=== PATIENT | male | born 1960 | race American Indian/Alaskan Native ===

== ENCOUNTER 2019-11-24 05:18 | Inpatient (IN) | payer OTHER ==
--- NOTE | 2019-11-24 05:23 | Event Note ---
Date: 11/24/19 Medical screening examination note: Patient is a 59-year-old gentleman, brought to the hospital by emergency medical services, patient appears to have a history of obesity, and diabetes, brought to the hospital with a complaint of painless shortness of breath. Of note, patient was evaluated at this hospital August of this year for similar symptoms, had a CT scan of the chest negative for acute pathology. EMS reports the patient was hypoxic in the field. Patient denies fever, and exposure to COVID. Patient fairly obese, suspect obstructive sleep apnea, pulmonary hypertension, and obesity hypoventilation syndrome. Place patient on BiPAP, obtain EKG, basic laboratory studies, x-ray of the chest, reassess.
--- NOTE | 2019-11-24 05:59 | XRay Report ---
CHEST 1 VIEW INDICATION: Dyspnea. COMPARISON: 09/01/2019 FINDINGS: Support devices: None. Heart: Stable. Lungs/Pleura: There are mild diffuse pulmonary opacities that are predominantly perihilar. No signifi cant effusion. IMPRESSION: 1. Mild diffuse predominantly perihilar bilateral pulmonary opacities. This could be seen in the sett ing of pulmonary edema. Signer Name: Robert Garnica MD Signed: 11/24/2019 5:55 AM Workstation Name: [id number]
[2019-11-24 06:04] LABS: ABG Base Excess -1.9 mmol/L (-2.0-3.0); ABG HCO3 23.9 mmol/L (20.0-26.0); ABG Methemoglobin 0.5 % (0.0-1.5); ABG Oxygen Saturation 97.4 % (95.0-99.0); ABG PCO2 44.6 mm Hg; ABG PH 7.348 pH Units (7.350-7.450); ABG PO2 99.5 mm Hg (80.0-90.0)
[2019-11-24 06:10] LABS: Basophils # (Auto) 0.1 K/mm3 (0.0-0.1); Basophils % (Auto) 0.7 % (0.0-1.8); Eosinophils # (Auto) 0.3 K/mm3 (0.0-0.4); Eosinophils % (Auto) 2.4 % (0.0-4.3); Hematocrit 41.9 % (35.5-45.6); Hemoglobin 14.2 gm/dl (11.8-15.2); Lymphocytes # (Auto) 3.7 K/mm3 (1.2-5.4); Lymphocytes % (Auto) 35.5 % (13.4-35.0); Mean Corpuscular HGB Conc 34 % (32-34); Mean Corpuscular Volume 90 fl (84-94); Monocytes # (Auto) 0.7 K/mm3 (0.0-0.8); Monocytes % (Auto) 6.6 % (0.0-7.3); Platelet Count 271 K/mm3 (140-440); Red Blood Count 4.67 M/mm3 (3.65-5.03)
[2019-11-24 06:12] LABS: INR 1.02 (0.87-1.13)
[2019-11-24 06:25] LABS: Alanine Aminotransferase 33 units/L (7-56); BUN/Creatinine Ratio 16; Blood Urea Nitrogen 14 mg/dL (9-20); Calcium 8.8 mg/dL (8.4-10.2); Hemolysis Index 5
--- NOTE | 2019-11-24 07:00 | Emergency Department Report ---
ED Shortness of Breath HPI - General Chief Complaint: Dyspnea/Respdistress Stated Complaint: DIFF BREATHING Time Seen by Provider: 11/24/19 06:17 Source: EMS Mode of arrival: Stretcher Limitations: No Limitations - History of Present Illness Initial Comments: 59-year-old male presents to ED with difficulty breathing. Patient states he was awakened from sleep with shortness of breath. EMS was called. They report patient had initial room air sats of 73%. Patient was placed on BiPAP upon ED arrival by previous MD, prior to my arrival. Patient is currently comfortable on BiPAP. He reports he had a similar occurrence of difficulty breathing appro ximately 6 months ago for which he came to the ED for evaluation. Patient states it is unclear what his diagnosis was. He has not been on any medications and has not followed up. Patient denies any fever, cough, chest pain, non- exposure to anyone who was tested positive for COVID-19. MD Complaint: shortness of breath -: This morning Severity: severe Consistency: constant Improves With: nothing Worsens With: nothing Treatments Prior to Arrival: oxygen - Related Data Home Oxygen Therapy: No Home Medications Medication Instructions Recorded Confirmed Last Taken Gabapentin 100 mg PO TID 11/24/19 11/24/19 11/23/19 amLODIPine 5 mg PO ONCE 11/24/19 11/24/19 11/23/19 Allergies Allergy/AdvReac Type Severity Reaction Status Date / Time No Known Allergies Allergy Unverified 09/01/19 08:29 ED Review of Systems ROS: Stated complaint: DIFF BREATHING Other details as noted in HPI Comment: All other systems reviewed and negative Constitutional: denies: chills, fever Respiratory: shortness of breath. denies: cough Cardiovascular: denies: chest pain Musculoskeletal: other (Denies any lower extremity swelling or pain) ED Past Medical Hx - Past Medical History Previous Medical History?: Yes Hx Diabetes: Yes - Social History Smoking Status: Current Every Day Smoker Substance Use Type: Alcohol - Medications Home Medications: Home Medications Medication Instructions Recorded Confirmed Last Taken Type Gabapentin 100 mg PO TID 11/24/19 11/24/19 11/23/19 History amLODIPine 5 mg PO ONCE 11/24/19 11/24/19 11/23/19 History ED Physical Exam - General Limitations: No Limitations General appearance: alert, in no apparent distress - Head Head exam: Present: atraumatic, normocephalic - Eye Eye exam: Present: normal appearance, EOMI - ENT ENT exam: Present: mucous membranes moist - Neck Neck exam: Present: normal inspection - Respiratory Respiratory exam: Present: rales, other (Currently on BiPAP). Absent: respiratory distress - Cardiovascular Cardiovascular Exam: Present: regular rate, normal rhythm - GI/Abdominal GI/Abdominal exam: Present: soft. Absent: distended, tenderness - Extremities Exam Extremities exam: Present: normal inspection. Absent: pedal edema, calf tenderness - Neurological Exam Neurological exam: Present: alert, oriented X3 - Psychiatric Psychiatric exam: Present: normal affect, normal mood - Skin Skin exam: Present: warm, dry, intact, normal color ED Course Vital Signs 11/24/19 11/24/19 11/24/19 05:20 05:24 05:30 Temperature 97.6 F Pulse Rate 129 H 120 H Pulse Rate [ Apical] Pulse Rate [ Left Radial] Pulse Rate [ Right Radial] Respiratory 28 H 28 H 26 H Rate Blood Pressure 165/102 Blood Pressure 165/102 [Left] O2 Sat by Pulse 100 100 99 Oximetry 11/24/19 11/24/19 11/24/19 05:32 05:53 06:00 Temperature Pulse Rate 115 H 113 H 107 H Pulse Rate [ Apical] Pulse Rate [ Left Radial] Pulse Rate [ Right Radial] Respiratory 24 20 19 Rate Blood Pressure 131/82 Blood Pressure 137/93 131/82 [Left] O2 Sat by Pulse 100 100 100 Oximetry 11/24/19 11/24/19 11/24/19 06:14 06:15 06:45 Temperature Pulse Rate 118 H 107 H 107 H Pulse Rate [ Apical] Pulse Rate [ Left Radial] Pulse Rate [ Right Radial] Respiratory 31 H 17 15 Rate Blood Pressure 130/84 124/86 Blood Pressure [Left] O2 Sat by Pulse 99 98 97 Oximetry 11/24/19 11/24/19 11/24/19 06:47 07:15 07:45 Temperature Pulse Rate 107 H 102 H 109 H Pulse Rate [ Apical] Pulse Rate [ Left Radial] Pulse Rate [ Right Radial] Respiratory 14 15 17 Rate Blood Pressure 120/86 111/81 Blood Pressure 123/92 [Left] O2 Sat by Pulse 97 99 96 Oximetry 11/24/19 11/24/19 11/24/19 08:15 08:47 09:01 Temperature Pulse Rate 102 H Pulse Rate [ Apical] Pulse Rate [ Left Radial] Pulse Rate [ Right Radial] Respiratory 21 Rate Blood Pressure 128/90 128/90 128/90 Blood Pressure [Left] O2 Sat by Pulse 100 95 96 Oximetry 11/24/19 11/24/19 09:22 09:30 Temperature 98.2 F Pulse Rate 105 H Pulse Rate [ 86 Apical] Pulse Rate [ 86 Left Radial] Pulse Rate [ 86 Right Radial] Respiratory 18 25 H Rate Blood Pressure 133/86 Blood Pressure [Left] O2 Sat by Pulse 96 98 Oximetry ED Medical Decision Making - Lab Data Result diagrams: 11/24/19 05:34 11/24/19 05:34 - EKG Data -: EKG Interpreted by Me EKG shows normal: sinus rhythm, axis, intervals, QRS complexes Rate: tachycardia (rate 107) - EKG Data Interpretation: nonspecific ST-T wave marisol, other (lateral T wave inversions; PVCs present) - Radiology Data Radiology results: report reviewed, image reviewed - Medical Decision Making 59-year-old male with likely new onset CHF, requiring BiPAP. Chest x-ray shows pulmonary edema. EKG ST changes. Troponin is normal. IV Lasix given here in ED. Patient will be admitted by hospitalist for further management. - Differential Diagnosis Pulmonary edema, pneumonia, hypertensive emergency Critical Care Time: Yes Critical care time in (mins) excluding proc time.: 35 Critical care attestation.: If time is entered above; I have spent that time in minutes in the direct care of this critically ill patient, excluding procedure time. Critical Care Time: 35 min ED Disposition Clinical Impression: New onset of congestive heart failure, Acute respiratory failure with hypoxia Disposition: OP ADMIT IP TO THIS HOSP Is pt being admited?: Yes Condition: Stable Time of Disposition: 07:27
[2019-11-24] MEDS ORDERED: FUROSEMIDE 40 MG/4 ML INJ IV ONE (07:26)
[2019-11-24] MEDS: ACETAMINOPHEN 325 MG TAB PO PRN ×2 (09:30→17:39)
[2019-11-24] MEDS ORDERED: ONDANSETRON 4 MG/2 ML INJ IV PRN (10:00)
[2019-11-24] MEDS ORDERED: DEXTROSE 50% IN WATER (25GM) 50 ML SYRINGE IV PRN (10:00)
--- NOTE | 2019-11-24 10:02 | History and Physical Report ---
History of Present Illness Date of examination: 11/24/19 Date of admission: 11/24/19 07:29 Chief complaint: Difficulty in breathing History of present illness: This is a 59-year-old male with IDDM, HTN, arthritis and a current smoker (1/2 PPD x20 years, quit 4 months ago however restarted last week) presents to the emergency department on 11/23 with shortness of breath upon waking from sleep. Upon arrival of EMS personnel SPO2 was 73% on room air. Patient was placed on BiPAP upon arrival to the emergency department. Patient reports a similar occurrence of difficulty breathing approximately 6 months ago. He also complains of a constant epigastric pain for the past 5 to 6 months this described as a sore. He endorses orthopnea and uses 4-5 pillows night and dyspnea while climbing stairs for the past 1-1/2 weeks. Patient denies any chest pain, cough, nausea or vomiting or diarrhea, hemoptysis, fatigue, fevers, chills or recent weight loss. Patient denies any sick contacts recent exposure to COVID-19. Work-up in the emergency department revealed proBNP 428, elevated glucose 234 and a chest x-ray revealed mild pulmonary edema. In the emergency department he received IV Lasix and was placed on BiPAP upon arrival. He has been now weaned to nasal cannula. Cardiology was consulted. Patient will be admitted to the hospitalist group with acute respiratory failure and acute exacerbation of heart failure. Advanced care planning has been conducted in the emergency department. Past History Past Medical History: diabetes, hypertension Past Surgical History: No surgical history Social history: , lives with family, smoking. denies: alcohol abuse, prescription drug abuse, IV drug use Family history: diabetes Medications and Allergies Allergies Allergy/AdvReac Type Severity Reaction Status Date / Time No Known Allergies Allergy Unverified 09/01/19 08:29 Home Medications Medication Instructions Recorded Confirmed Last Taken Type No Known Home Medications [No 09/01/19 09/01/19 Unknown History Reported Home Medications] Active Meds: Active Medications Acetaminophen (Tylenol) 650 mg PO Q4H PRN PRN Reason: Pain MILD(1-3)/Fever >100.5/SON Dextrose (D50w (25gm) Syringe) 50 ml IV Q30MIN PRN; Protocol PRN Reason: Hypoglycemia Docusate Sodium (Colace) 100 mg PO BID APOLLO Famotidine (Pepcid) 20 mg PO QDAY [facility] Insulin Human Lispro (Humalog) 0 unit SUB-Q ACHS [facility]; Protocol Ondansetron HCl (Zofran) 4 mg IV Q6H PRN PRN Reason: Nausea And Vomiting Oxycodone/Acetaminophen (Percocet 5/325) 1 tab PO Q6H PRN PRN Reason: Pain, Moderate (4-6) Senna (Senokot) 8.6 mg PO Q12HR [facility] Sodium Chloride (Sodium Chloride Flush Syringe 10 Ml) 10 ml IV BID APOLLO Sodium Chloride (Sodium Chloride Flush Syringe 10 Ml) 10 ml IV PRN PRN PRN Reason: LINE FLUSH Review of Systems Constitutional: no weight loss, no weight gain, no fever, no chills, no sweats, no night sweats, no fatigue, no weakness Ears, nose, mouth and throat: no ear pain, no ear discharge, no tinnitis, no decreased hearing, no nose pain, no nasal congestion, no nasal discharge, no sinus pressure, no sinus pain, no epistaxis, no bleeding gums, no dental pain, no mouth pain, no dysphagia, no hoarseness, no sore throat Cardiovascular: orthopnea, shortness of breath, dyspnea on exertion, paroxysmal nocturnal dyspnea, high blood pressure, no chest pain, no palpitations, no edema, no syncope, no lightheadedness, no leg edema Respiratory: shortness of breath, dyspnea on exertion, no cough, no cough with sputum, no excessive sputum, no hemoptysis, no congestion, no wheezing, no pleurisy, no sleep apnea Gastrointestinal: no abdominal pain, no nausea, no vomiting, no diarrhea, no con stipation, no hematemesis, no BRBPR, no melena, no hematochezia, no early satiety, no jaundice Genitourinary Male: nocturia, no dysuria, no hematuria, no flank pain, no discha rge, no urinary frequency, no urinary hesitancy, no incontinence, no erectile dysfunction, no genital pain, no genital sores Rectal: no pain, no incontinence, no bleeding Musculoskeletal: no neck stiffness, no neck pain, no shooting arm pain, no arm numbness/tingling, no low back pain, no shooting leg pain, no leg numbness/tingling, no redness of joints, no morning stiffness, no muscle weakness, no limitation of motion Integumentary: no rash, no pruritis, no redness, no sores, no wounds, no jaundice, no growths, no darkening of skin, no depigmentation Neurological: no head injury, no transient paralysis, no paralysis, no weakness, no parathesias, no numbness, no tingling, no seizures, no syncope, no vertigo, no headaches, no migraines, no tic, no convulsions, no aphasia, no change in speech Psychiatric: no anxiety, no memory loss, no change in sleep habits, no sleep disturbances, no insomnia, no suicidal ideation, no disorientation Endocrine: no cold intolerance, no heat intolerance, no polyphagia, no excessive thirst, no polydipsia, no excessive sweating, no flushing, no weight change, no proptosis, no palpatations, no high blood sugars Hematologic/Lymphatic: no easy bruising, no easy bleeding Allergic/Immunologic: no urticaria Exam - Constitutional Vitals: Temp Pulse Resp BP Pulse Ox 97.6 F 102 H 21 128/90 100 11/24/19 05:24 11/24/19 08:15 11/24/19 08:15 11/24/19 08:15 11/24/19 08:15 General appearance: Present: no acute distress - EENT Eyes: Present: PERRL, EOM intact ENT: hearing intact, poor dentition - Neck Neck: Present: supple - Respiratory Respiratory effort: normal Respiratory: bilateral: diminished - Cardiovascular Rhythm: regular Heart Sounds: Present: S1 & S2. Absent: systolic murmur, diastolic murmur - Extremities Extremities: no ischemia, pulses intact, pulses symmetrical, normal temperature, normal color, Full ROM Extremity abnormal: edema (1-2+ pitting) Peripheral Pulses: within normal limits - Abdominal General gastrointestinal: Present: soft, non-tender, non-distended, normal bowel sounds - Integumentary Integumentary: Present: clear, warm, dry - Musculoskeletal Musculoskeletal: strength equal bilaterally - Psychiatric Psychiatric: cooperative HEART Score - HEART Score Troponin: Troponin T < 0.010 ng/mL (0.00-0.029) 11/24/19 05:34 Results - Labs CBC & Chem 7: 11/24/19 05:34 11/24/19 05:34 Labs: Laboratory Last Values WBC 10.4 K/mm3 (4.5-11.0) 11/24/19 05:34 RBC 4.67 M/mm3 (3.65-5.03) 11/24/19 05:34 Hgb 14.2 gm/dl (11.8-15.2) 11/24/19 05:34 Hct 41.9 % (35.5-45.6) 11/24/19 05:34 MCV 90 fl (84-94) 11/24/19 05:34 MCH 31 pg (28-32) 11/24/19 05:34 MCHC 34 % (32-34) 11/24/19 05:34 RDW 14.0 % (13.2-15.2) 11/24/19 05:34 Plt Count 271 K/mm3 (140-440) 11/24/19 05:34 Lymph % (Auto) 35.5 % (13.4-35.0) H 11/24/19 05:34 [place] % (Auto) 6.6 % (0.0-7.3) 11/24/19 05:34 Eos % (Auto) 2.4 % (0.0-4.3) 11/24/19 05:34 Baso % (Auto) 0.7 % (0.0-1.8) 11/24/19 05:34 Lymph # (Auto) 3.7 K/mm3 (1.2-5.4) 11/24/19 05:34 Haskell # (Auto) 0.7 K/mm3 (0.0-0.8) 11/24/19 05:34 Eos # (Auto) 0.3 K/mm3 (0.0-0.4) 11/24/19 05:34 Baso # (Auto) 0.1 K/mm3 (0.0-0.1) 11/24/19 05:34 Seg Neutrophils % 54.8 % (40.0-70.0) 11/24/19 05:34 Seg Neutrophils # 5.7 K/mm3 (1.8-7.7) 11/24/19 05:34 PT 13.5 Sec. (12.2-14.9) 11/24/19 05:34 INR 1.02 (0.87-1.13) 11/24/19 05:34 ABG pH 7.348 pH Units (7.350-7.450) L 11/24/19 05:47 ABG pCO2 44.6 mm Hg 11/24/19 05:47 ABG pO2 99.5 mm Hg (80.0-90.0) H 11/24/19 05:47 ABG HCO3 23.9 mmol/L (20.0-26.0) 11/24/19 05:47 ABG O2 Saturation 97.4 % (95.0-99.0) 11/24/19 05:47 ABG O2 Content 18.9 (0.0-44) 11/24/19 05:47 ABG Base Excess -1.9 mmol/L (-2.0-3.0) 11/24/19 05:47 ABG Hemoglobin 14.1 gm/dl (14.0-18.0) 11/24/19 05:47 ABG Carboxyhemoglobin 2.1 % (0.0-5.0) 11/24/19 05:47 ABG Methemoglobin 0.5 % (0.0-1.5) 11/24/19 05:47 Oxyhemoglobin 94.8 % (95.0-99.0) L 11/24/19 05:47 FiO2 45 % 11/24/19 05:47 Sodium 138 mmol/L (137-145) 11/24/19 05:34 Potassium 3.7 mmol/L (3.6-5.0) 11/24/19 05:34 Chloride 99.0 mmol/L (98-107) 11/24/19 05:34 Carbon Dioxide 22 mmol/L (22-30) 11/24/19 05:34 Anion Gap 21 mmol/L 11/24/19 05:34 BUN 14 mg/dL (9-20) 11/24/19 05:34 Creatinine 0.9 mg/dL (0.8-1.3) 11/24/19 05:34 Estimated GFR > 60 ml/min 11/24/19 05:34 BUN/Creatinine Ratio 16 % 11/24/19 05:34 Glucose 334 mg/dL (75-100) H 11/24/19 05:34 POC Glucose 314 (70-105) H 11/24/19 09:52 Calcium 8.8 mg/dL (8.4-10.2) 11/24/19 05:34 Magnesium 1.90 mg/dL (1.7-2.3) 11/24/19 05:34 Total Bilirubin 0.30 mg/dL (0.1-1.2) 11/24/19 05:34 AST 37 units/L (5-40) 11/24/19 05:34 ALT 33 units/L (7-56) 11/24/19 05:34 Alkaline Phosphatase 126 units/L (35-129) 11/24/19 05:34 Troponin T < 0.010 ng/mL (0.00-0.029) 11/24/19 05:34 NT-Pro-B Natriuret Pep 428.2 pg/mL (0-900) 11/24/19 05:34 Total Protein 7.0 g/dL (6.3-8.2) 11/24/19 05:34 Albumin 4.0 g/dL (3.9-5) 11/24/19 05:34 Albumin/Globulin Ratio 1.3 % 11/24/19 05:34 Z[place]ata/IV: Voiding Method Toilet IV Catheter Type [Right INT / Saline Lock Antecubital] Assessment and Plan - Patient Problems (1) New onset of congestive heart failure Current Visit: Yes Status: Acute Plan to address problem: Cardiology consult 11/23 proBNP 428 Strict I's and O's Daily weights Supportive care Cardioprotective measures 11/23 echocardiogram (2) Acute respiratory failure with hypoxia Current Visit: Yes Status: Acute Plan to address problem: Per EMS his room air SPO2 was 76% S/p BiPAP in the ED 11/23 ABG on 40% FiO2: 7.3/44/99.5/23 On my examination patient was on 2 L nasal cannula O2 99% Subjectively patient is doing much better Pulmonary hygiene Supplemental oxygenation as needed (3) HTN (hypertension) Current Visit: Yes Status: Chronic Plan to address problem: Patient states that he was diagnosed with hypertension during his last visit with his PCP however has not been taking his medications for about a month Blood pressure monitoring per protocol We will add antihypertensive as needed (4) Diabetes mellitus Current Visit: Yes Status: Chronic Plan to address problem: Patient states that he was diagnosed with DM on his last visit with his PCP however he has not been taking his insulin for about a month 10/14 hemoglobin A1c SSI CC cardiac diet Accu-Cheks AC at bedtime (5) Tobacco abuse Current Visit: Yes Status: Acute Plan to address problem: Smoking cessation education Consider transdermal NicoDerm patch while in-house if requested (6) DVT prophylaxis Current Visit: Yes Status: Acute Plan to address problem: SCDs to bilateral extremities while in bed Subcu heparin (7) Full code status Current Visit: Yes Status: Acute
[2019-11-24] MEDS: DOCUSATE SODIUM 100 MG CAP PO SCH ×2 (10:13→21:24)
[2019-11-24] MEDS: FAMOTIDINE 20 MG TAB PO SCH (10:13)
[2019-11-24] MEDS: SENNOSIDES 8.6 MG TAB PO SCH ×2 (10:13→21:24)
[2019-11-24 10:26] LABS: Chol/HDL Ratio 3.78 %
--- NOTE | 2019-11-24 10:32 | Consultation ---
History of Present Illness Consult date: 11/24/19 Requesting physician: PARMJIT ALEXANDRA Consult reason: congestive heart failure History of present illness: The pt is a 59-year-old male with a past medical history of HTN, DM, arthritis, tobacco use (1/2 PPD x20 years, quit 4 months ago however restarted last week), marijuana use. He is previously unknown to our practice. He presented with c/o sudden onset SOB which awoke him from sleep around 3AM today. He also admits to left-sided chest pain with deep inspiration and palpation of the chest wall for several days and exertional dyspnea for the past several months. He admits that he has not taken any of his home medications in approx 1.5 months. Upon arrival of EMS personnel SPO2 was 73% on room air. Patient was placed on BiPAP upon arrival to the emergency department. Patient reports a similar occurrence of dif ficulty breathing in August 2019. He was evaluated here in the ED at that time and discharge home in stable condition. Work-up in the emergency department revealed proBNP 428, elevated glucose 234, CXR with pulmonary edema. In the emergency department he received IV Lasix and was placed on BiPAP upon arrival. He has been now weaned to nasal cannula. On evaluation, he states he is feeling better. Past History Past Medical History: diabetes, hypertension Past Surgical History: No surgical history Social history: , lives with family, smoking. denies: alcohol abuse, prescription drug abuse, IV drug use Family history: diabetes Medications and Allergies Allergies Allergy/AdvReac Type Severity Reaction Status Date / Time No Known Allergies Allergy Unverified 09/01/19 08:29 Home Medications Medication Instructions Recorded Confirmed Last Taken Type Gabapentin 100 mg PO TID 11/24/19 11/24/19 11/23/19 History amLODIPine 5 mg PO ONCE 11/24/19 11/24/19 11/23/19 History Active Meds: Active Medications Acetaminophen (Tylenol) 650 mg PO Q4H PRN PRN Reason: Pain MILD(1-3)/Fever >100.5/SON Dextrose (D50w (25gm) Syringe) 50 ml IV Q30MIN PRN; Protocol PRN Reason: Hypoglycemia Docusate Sodium (Colace) 100 mg PO BID APOLLO Last Admin: 11/24/19 10:13 Dose: 100 mg Documented by: Famotidine (Pepcid) 20 mg PO QDAY [facility] Last Admin: 11/24/19 10:13 Dose: 20 mg Documented by: Insulin Human Lispro (Humalog) 0 unit SUB-Q ACHS [facility]; Protocol Ondansetron HCl (Zofran) 4 mg IV Q6H PRN PRN Reason: Nausea And Vomiting Oxycodone/Acetaminophen (Percocet 5/325) 1 tab PO Q6H PRN PRN Reason: Pain, Moderate (4-6) Senna (Senokot) 8.6 mg PO Q12HR [facility] Last Admin: 11/24/19 10:13 Dose: 8.6 mg Documented by: Sodium Chloride (Sodium Chloride Flush Syringe 10 Ml) 10 ml IV BID [facility] Last Admin: 11/24/19 10:13 Dose: 10 ml Documented by: Sodium Chloride (Sodium Chloride Flush Syringe 10 Ml) 10 ml IV PRN PRN PRN Reason: LINE FLUSH Review of Systems Constitutional: no fever, no chills, no sweats Ears, nose, mouth and throat: no ear pain, no nose pain, no sinus pressure, no sinus pain Cardiovascular: chest pain, orthopnea, shortness of breath, dyspnea on exertion, high blood pressure, decreased exercise tolerance, no palpitations, no rapid/irregular heart beat, no edema, no syncope, no lightheadedness Respiratory: shortness of breath, dyspnea on exertion, pain on inspiration, no cough, no congestion, no wheezing Gastrointestinal: no abdominal pain, no nausea, no vomiting, no diarrhea, no constipation, no change in bowel habits Genitourinary Male: no dysuria, no hematuria, no flank pain, no discharge, no urinary frequency, no urinary hesitancy Musculoskeletal: no neck stiffness, no neck pain, no shooting arm pain, no arm numbness/tingling, no low back pain, no shooting leg pain Integumentary: no rash, no pruritis, no redness, no sores, no wounds Neurological: no head injury, no paralysis, no weakness, no parathesias, no numbness, no tingling, no seizures, no syncope Psychiatric: no anxiety Endocrine: no cold intolerance, no heat intolerance Hematologic/Lymphatic: no easy bruising, no easy bleeding Allergic/Immunologic: no urticaria Physical Examination Vital Signs Resp Pulse Ox 28 H 100 11/24/19 05:20 11/24/19 05:20 General appearance: no acute distress HEENT: Positive: PERRL, Normocephaly, Mucus Membranes Moist Neck: Positive: neck supple, trachea midline Cardiac: Positive: Reg Rate and Rhythm, S1/S2 Lungs: Positive: Decreased Breath Sounds, Oxygen Neuro: Positive: Grossly Intact Abdomen: Negative: Tender Skin: Negative: Rash Extremities: Absent: edema Results 11/24/19 05:34 11/24/19 05:34 Cardiac Enzymes 11/24/19 Range/Units 05:34 AST 37 (5-40) units/L Coagulation 11/24/19 Range/Units 05:34 PT 13.5 (12.2-14.9) Sec. INR 1.02 (0.87-1.13) Lipids 11/24/19 Range/Units 05:34 Triglycerides 169 H (2-149) mg/dL Cholesterol 159 (50-199) mg/dL HDL Cholesterol 42 (40-59) mg/dL Cholesterol/HDL Ratio 3.78 % CBC 11/24/19 Range/Units 05:34 WBC 10.4 (4.5-11.0) K/mm3 RBC 4.67 (3.65-5.03) M/mm3 Hgb 14.2 (11.8-15.2) gm/dl Hct 41.9 (35.5-45.6) % Plt Count 271 (140-440) K/mm3 Lymph # (Auto) 3.7 (1.2-5.4) K/mm3 [place] # (Auto) 0.7 (0.0-0.8) K/mm3 Eos # (Auto) 0.3 (0.0-0.4) K/mm3 Baso # (Auto) 0.1 (0.0-0.1) K/mm3 Comprehensive Metabolic Panel 11/24/19 Range/Units 05:34 Sodium 138 (137-145) mmol/L Potassium 3.7 (3.6-5.0) mmol/L Chloride 99.0 (98-107) mmol/L Carbon Dioxide 22 (22-30) mmol/L BUN 14 (9-20) mg/dL Creatinine 0.9 (0.8-1.3) mg/dL Glucose 334 H (75-100) mg/dL Calcium 8.8 (8.4-10.2) mg/dL AST 37 (5-40) units/L ALT 33 (7-56) units/L Alkaline Phosphatase 126 (35-129) units/L Total Protein 7.0 (6.3-8.2) g/dL Albumin 4.0 (3.9-5) g/dL - Imaging and Cardiology Echo: pending EKG: report reviewed, image reviewed EKG interpretations - Telemetry EKG Rhythm: Sinus Rhythm - EKG Sinus rhythms and dysrhythmias: sinus rhythm Ventricular dysrhythmias: ventricular premature com Assessment and Plan Initiate ASA 81, lipitor, lopressor, losartan, IV lasix BID. Obtain echo. Plan for lexiscan MPI stress test in AM. NPO after MN. Will follow. The patient has been seen in conjunction with Dr. Lili Smith who agrees with the assessment and plan of care. - Patient Problems (1) Acute heart failure Current Visit: Yes Status: Acute (2) Acute respiratory failure with hypoxia Current Visit: Yes Status: Acute (3) Uncontrolled hypertension Current Visit: Yes Status: Chronic (4) Diabetes mellitus with hyperglycemia Current Visit: Yes Status: Chronic (5) Hyperlipidemia Current Visit: Yes Status: Chronic (6) Obesity Current Visit: Yes Status: Chronic (7) Tobacco abuse Current Visit: Yes Status: Chronic (8) PVC's (premature ventricular contractions) Current Visit: Yes Status: Acute (9) Sinus tachycardia Current Visit: Yes Status: Acute
[2019-11-24] MEDS: oxyCODONE /ACETAMINOPHEN 5-325MG TAB PO PRN (11:45)
[2019-11-24] MEDS: LOSARTAN 25 MG TAB PO SCH (11:45)
[2019-11-24] MEDS: INSULIN LISPRO 100 UNIT/ML VIAL 3 mL SUB-Q SCH ×3 (12:04→21:23)
[2019-11-24] MEDS ORDERED: GABAPENTIN 100 MG PO SCH (14:00)
[2019-11-24] MEDS: GABAPENTIN 100 MG CAP PO SCH ×2 (14:28→21:23)
[2019-11-24] MEDS: FUROSEMIDE 40 MG/4 ML INJ IV SCH (17:38)
[2019-11-24] MEDS: METOPROLOL TARTRATE 50 MG TAB PO SCH (21:23)
[2019-11-25] MEDS: FUROSEMIDE 40 MG/4 ML INJ IV SCH ×2 (05:18→17:38)
[2019-11-25] MEDS ORDERED: REGADENOSON 0.4 MG/5 ML INJ IV ONE ×2 (07:17→07:26)
[2019-11-25] MEDS: INSULIN LISPRO 100 UNIT/ML VIAL 3 mL SUB-Q SCH ×4 (07:43→21:40)
[2019-11-25 08:24] LABS: Basophils # (Auto) 0.1 K/mm3 (0.0-0.1); Basophils % (Auto) 1.1 % (0.0-1.8); Eosinophils # (Auto) 0.2 K/mm3 (0.0-0.4); Hematocrit 41.7 % (35.5-45.6); Hemoglobin 14.1 gm/dl (11.8-15.2); Lymphocytes # (Auto) 2.5 K/mm3 (1.2-5.4); Lymphocytes % (Auto) 33.6 % (13.4-35.0); Mean Corpuscular HGB Conc 34 % (32-34); Mean Corpuscular Volume 89 fl (84-94); Monocytes # (Auto) 0.6 K/mm3 (0.0-0.8); Monocytes % (Auto) 8.3 % (0.0-7.3); Platelet Count 236 K/mm3 (140-440); Red Blood Count 4.67 M/mm3 (3.65-5.03); Red Cell Distribution Width 13.9 % (13.2-15.2)
[2019-11-25 08:44] LABS: BUN/Creatinine Ratio 18; Blood Urea Nitrogen 20 mg/dL (9-20); Calcium 9.1 mg/dL (8.4-10.2); Hemolysis Index 20
--- NOTE | 2019-11-25 10:29 | Progress Note ---
Assessment and Plan S/p lexiscan MPI stress test today which was negative for ischemia, EF 31%. Await echo. Cont present cardiac management. The patient has been seen in conjunction with Dr. Lili Smith who agrees with the assessment and plan of care. - Patient Problems (1) Acute heart failure Current Visit: Yes Status: Acute (2) Acute respiratory failure with hypoxia Current Visit: Yes Status: Acute (3) Uncontrolled hypertension Current Visit: Yes Status: Chronic (4) Diabetes mellitus with hyperglycemia Current Visit: Yes Status: Chronic (5) Hyperlipidemia Current Visit: Yes Status: Chronic (6) Obesity Current Visit: Yes Status: Chronic (7) Tobacco abuse Current Visit: Yes Status: Chronic (8) PVC's (premature ventricular contractions) Current Visit: Yes Status: Acute (9) Sinus tachycardia Current Visit: Yes Status: Acute Subjective Date of service: 11/25/19 Principal diagnosis: HF Interval history: pt for stress test today. in SR on tele HR 70s, infrequent PVCs overnight. Objective Last Vital Signs Temp 98.0 F 11/25/19 03:47 Pulse 75 11/25/19 03:47 Resp 18 11/25/19 03:47 BP 107/67 11/25/19 03:47 Pulse Ox 94 11/25/19 03:47 - Physical Examination General: No Apparent Distress HEENT: Positive: PERRL, Normocephaly, Mucus Membranes Moist Neck: Positive: neck supple, trachea midline Cardiac: Positive: Reg Rate and Rhythm, S1/S2 Lungs: Positive: Decreased Breath Sounds Neuro: Positive: Grossly Intact Abdomen: Negative: Tender Skin: Negative: Rash Extremities: Absent: edema - Labs and Meds Lipids 11/24/19 Range/Units 05:34 Triglycerides 169 H (2-149) mg/dL Cholesterol 159 (50-199) mg/dL HDL Cholesterol 42 (40-59) mg/dL Cholesterol/HDL Ratio 3.78 % CBC 11/25/19 Range/Units 06:33 WBC 7.4 (4.5-11.0) K/mm3 RBC 4.67 (3.65-5.03) M/mm3 Hgb 14.1 (11.8-15.2) gm/dl Hct 41.7 (35.5-45.6) % Plt Count 236 (140-440) K/mm3 Lymph # (Auto) 2.5 (1.2-5.4) K/mm3 [place] # (Auto) 0.6 (0.0-0.8) K/mm3 Eos # (Auto) 0.2 (0.0-0.4) K/mm3 Baso # (Auto) 0.1 (0.0-0.1) K/mm3 Comprehensive Metabolic Panel 11/25/19 Range/Units 06:33 Sodium 135 L (137-145) mmol/L Potassium 4.0 (3.6-5.0) mmol/L Chloride 96.0 L (98-107) mmol/L Carbon Dioxide 27 (22-30) mmol/L BUN 20 (9-20) mg/dL Creatinine 1.1 (0.8-1.3) mg/dL Glucose 269 H (75-100) mg/dL Calcium 9.1 (8.4-10.2) mg/dL - Imaging and Cardiology EKG: report reviewed, image reviewed Echo: pending - Telemetry EKG Rhythm: Sinus Rhythm - EKG Sinus rhythms and dysrhythmias: sinus rhythm Ventricular dysrhythmias: ventricular premature com
[2019-11-25] MEDS: ASPIRIN 81 MG TAB CHEW PO SCH (12:46)
[2019-11-25] MEDS: SENNOSIDES 8.6 MG TAB PO SCH ×2 (12:46→21:41)
[2019-11-25] MEDS: LOSARTAN 25 MG TAB PO SCH (12:46)
[2019-11-25] MEDS: DOCUSATE SODIUM 100 MG CAP PO SCH ×2 (12:47→21:40)
[2019-11-25] MEDS: FAMOTIDINE 20 MG TAB PO SCH (12:47)
[2019-11-25] MEDS: METOPROLOL TARTRATE 50 MG TAB PO SCH ×2 (12:47→21:39)
[2019-11-25] MEDS: GABAPENTIN 100 MG CAP PO SCH ×3 (12:47→21:40)
--- NOTE | 2019-11-25 17:03 | Progress Note ---
Assessment and Plan (1) New onset of systolic CHF Current Visit: Yes Status: Acute Plan to address problem: Follow-up outpatient with cardiology Dr. Lili Smith on 12/10/2019 @ 1:45PM in the [facility]. 11/23 proBNP 428 11/23 echocardiogram shows EF 25-30%, mild LVH, impaired relaxation 11/23 Lexiscan MPI shows no ischemia but a EF of 31% Continue aspirin, Lipitor, losartan, metoprolol, Lasix Patient still short of breath on Lasix to be optimized changed to inpatient status (2) Acute respiratory failure with hypoxia Current Visit: Yes Status: Resolved Plan to address problem: Per EMS his room air SPO2 was 76% S/p BiPAP in the ED 11/23 ABG on 40% FiO2: 7.3/44/99.5/23 Weaned to NC to RA at [place] (3) HTN (hypertension) Current Visit: Yes Status: Chronic Plan to address problem: Blood pressure monitoring per primary care physician Continue losartan, metoprolol, Lasix (4) Diabetes mellitus Current Visit: Yes Status: Chronic Plan to address problem: Patient states that he was diagnosed with DM on his last visit with his PCP however he has not been taking his insulin for about a month Patient has been hyperglycemic however done his stay Resume home insulin Follow-up with the primary care physician Continue consistent carbohydrate cardiac diet Blood glucose monitoring per primary care physician (5) Tobacco abuse Current Visit: Yes Status: Acute Plan to address problem: Smoking cessation education Consider transdermal NicoDerm patch (6) Hyponatremia Current Visit: Yes Status: Resolved Plan to address problem: 11/25 sodium 135, discharge sodium 140 (7) Hypochloremia Current Visit: Yes Status: Resolved Plan to address problem: Admit chloride 96, discharge chloride 100.1 Disposition: DC-30 STILL A PATIENT Time spent for discharge: 40 Change to inpatient status a Subjective Date of service: 11/25/19 Principal diagnosis: HF Interval history: This is a 59-year-old male with IDDM, HTN, arthritis and a current smoker (1/2 PPD x20 years, quit 4 months ago however restarted last week) presents to the emergency department on 11/23 with shortness of breath upon waking from sleep. Upon arrival of EMS personnel SPO2 was 73% on room air. Patient was placed on BiPAP upon arrival to the emergency department. Patient reports a similar occurrence of difficulty breathing approximately 6 months ago. He also complains of a constant epigastric pain for the past 5 to 6 months rated/10 this described as a sore. He endorses orthopnea and uses 4-5 pillows night and dyspnea while climbing stairs for the past 1-1/2 weeks. Patient denies any chest pain, cough, nausea or vomiting or diarrhea, hemoptysis, fatigue, fevers, chills or recent weight loss. Patient denies any sick contacts recent exposure to COVID-19. Work-up in the emergency department revealed proBNP 428, elevated glucose 234 and a chest x-ray revealed mild pulmonary edema. In the emergency department he received IV Lasix and was placed on BiPAP upon arrival. He has been now weaned to nasal cannula. Cardiology was consulted. Patient will be admitted to the hospitalist group with acute respiratory failure and acute exacerbation of heart failure. Advanced care planning has been conducted in the emergency department. Patient still short of breath Objective - Constitutional Vitals: Vital Signs - 12hr 11/25/19 11/25/19 11/25/19 09:00 09:55 10:15 Pulse Rate Pulse Rate [ 72 Apical] Pulse Rate [ 72 Left Radial] Pulse Rate [ 72 Right Radial] Respiratory 19 Rate Blood Pressure 128/76 136/72 11/25/19 11/25/19 11/25/19 10:16 10:21 10:22 Pulse Rate Pulse Rate [ Apical] Pulse Rate [ Left Radial] Pulse Rate [ Right Radial] Respiratory Rate Blood Pressure 130/74 131/75 125/75 11/25/19 11/25/19 11/25/19 10:23 12:46 12:47 Pulse Rate 78 76 Pulse Rate [ Apical] Pulse Rate [ Left Radial] Pulse Rate [ Right Radial] Respiratory Rate Blood Pressure 127/67 120/80 120/80 General appearance: Present: no acute distress, well-nourished - EENT Eyes: PERRL, EOM intact ENT: hearing intact, clear oral mucosa Ears: bilateral: normal - Neck Neck: supple, normal ROM - Respiratory Respiratory effort: normal Respiratory: bilateral: CTA - Breasts Breasts: normal - Cardiovascular Rhythm: regular Heart Sounds: Present: S1 & S2. Absent: gallop, rub Extremities: pulses intact, No edema, normal color, Full ROM - Gastrointestinal General gastrointestinal: Present: soft, non-tender, non-distended, normal bowel sounds - Genitourinary Male genitourinary: normal - Integumentary Integumentary: clear, warm, dry - Musculoskeletal Musculoskeletal: 1, strength equal bilaterally - Neurologic Neurologic: moves all extremities - Psychiatric Psychiatric: memory intact, appropriate mood/affect, intact judgment & insight - Labs CBC & Chem 7: 11/25/19 06:33 11/26/19 04:51 Labs: Abnormal lab results 11/24/19 11/24/19 11/25/19 Range/Units 17:41 20:28 06:33 [place] % (Auto) (0.0-7.3) % Sodium 135 L (137-145) mmol/L Chloride 96.0 L (98-107) mmol/L Glucose 269 H (75-100) mg/dL POC Glucose 164 H 177 H (70-105) 11/25/19 11/25/19 11/25/19 Range/Units 06:33 07:27 12:59 [place] % (Auto) 8.3 H (0.0-7.3) % Sodium (137-145) mmol/L Chloride (98-107) mmol/L Glucose (75-100) mg/dL POC Glucose 233 H 234 H (70-105) HEART Score - HEART Score Troponin: Troponin T < 0.010 ng/mL (0.00-0.029) 11/24/19 05:34
[2019-11-26 05:34] LABS: BUN/Creatinine Ratio 19; Blood Urea Nitrogen 21 mg/dL (9-20); Calcium 9.4 mg/dL (8.4-10.2); Hemolysis Index 2
[2019-11-26] MEDS: FUROSEMIDE 40 MG/4 ML INJ IV SCH (06:08)
[2019-11-26] MEDS: INSULIN LISPRO 100 UNIT/ML VIAL 3 mL SUB-Q SCH ×2 (07:55→12:15)
[2019-11-26] MEDS: oxyCODONE /ACETAMINOPHEN 5-325MG TAB PO PRN (07:56)
[2019-11-26] MEDS: DOCUSATE SODIUM 100 MG CAP PO SCH (10:10)
[2019-11-26] MEDS: METOPROLOL TARTRATE 50 MG TAB PO SCH (10:11)
[2019-11-26] MEDS: FAMOTIDINE 20 MG TAB PO SCH (10:11)
[2019-11-26] MEDS: SENNOSIDES 8.6 MG TAB PO SCH (10:11)
[2019-11-26] MEDS: GABAPENTIN 100 MG CAP PO SCH (10:11)
[2019-11-26] MEDS: LOSARTAN 25 MG TAB PO SCH (10:11)
[2019-11-26] MEDS: ASPIRIN 81 MG TAB CHEW PO SCH (10:11)
--- NOTE | 2019-11-26 11:52 | Progress Note ---
Assessment and Plan tte reviewed - EF 25-30%, mild LVH, impaired relaxation. S/p lexiscan MPI stress test yesterday which was negative for ischemia. Currently stable cardiac status. Pt appears to be nearing/at euvolemia. Pt may discharge from cardiology standpoint. At discharge, recommend PO lasix 40mg daily. Cont all other present cardiac management, including lopressor and losartan. Follow up in our [place] office with Dr. Lili Smith on 12/10/2019 @ 1:45PM. The patient has been seen in conjunction with Dr. Lili Smith who agrees with the assessment and plan of care. - Patient Problems (1) Acute HFrEF (heart failure with reduced ejection fraction) Current Visit: Yes Status: Acute (2) Cardiomyopathy Current Visit: Yes Status: Acute (3) Acute respiratory failure with hypoxia Current Visit: Yes Status: Acute (4) Uncontrolled hypertension Current Visit: Yes Status: Chronic (5) Diabetes mellitus with hyperglycemia Current Visit: Yes Status: Chronic (6) Hyperlipidemia Current Visit: Yes Status: Chronic (7) Obesity Current Visit: Yes Status: Chronic (8) Tobacco abuse Current Visit: Yes Status: Chronic (9) PVC's (premature ventricular contractions) Current Visit: Yes Status: Acute (10) Sinus tachycardia Current Visit: Yes Status: Acute Subjective Date of service: 11/26/19 Principal diagnosis: HF Interval history: pt resting in bed, feeling better. in SR on tele HR 70s, infrequent PVCs overnight. Objective Last Vital Signs Temp 97.8 F 11/26/19 07:37 Pulse 73 11/26/19 07:37 Resp 18 11/26/19 07:37 BP 122/75 11/26/19 07:37 Pulse Ox 93 11/26/19 07:37 - Physical Examination General: No Apparent Distress HEENT: Positive: PERRL, Normocephaly, Mucus Membranes Moist Neck: Positive: neck supple, trachea midline Cardiac: Positive: Reg Rate and Rhythm, S1/S2 Lungs: Positive: Decreased Breath Sounds Neuro: Positive: Grossly Intact Abdomen: Negative: Tender Skin: Negative: Rash Extremities: Absent: edema - Labs and Meds Comprehensive Metabolic Panel 11/26/19 Range/Units 04:51 Sodium 140 (137-145) mmol/L Potassium 4.4 (3.6-5.0) mmol/L Chloride 100.1 (98-107) mmol/L Carbon Dioxide 32 H (22-30) mmol/L BUN 21 H (9-20) mg/dL Creatinine 1.1 (0.8-1.3) mg/dL Glucose 193 H (75-100) mg/dL Calcium 9.4 (8.4-10.2) mg/dL - Imaging and Cardiology EKG: report reviewed, image reviewed Echo: report reviewed - Telemetry EKG Rhythm: Sinus Rhythm - EKG Sinus rhythms and dysrhythmias: sinus rhythm Ventricular dysrhythmias: ventricular premature com
[2019-11-26 12:27] VITALS: BP 142/84
--- NOTE | 2019-11-26 13:14 | Discharge Summary ---
<ZEV BASURTO - Last Filed: 11/26/19 15:22> Providers - Providers Date of Admission: 11/25/19 12:00 Attending physician: NAJMA AMOS 11/24/19 08:45 Consult to Cardiac Rehabilitation [CONS] Routine Reason For Exam: new onset CHF Consult to Cardiology [CONS] Routine Consulting Provider: ROMÁN MOORE Reason For Exam: new onset CHF Primary care physician: LOGGING ENGINEER Hospitalization Condition: Stable Hospital course: This is a 59-year-old male with IDDM, HTN, arthritis and a current smoker (1/2 PPD x20 years, quit 4 months ago however restarted last week) presents to the emergency department on 11/23 with shortness of breath upon waking from sleep. Upon arrival of EMS personnel SPO2 was 73% on room air. Patient was placed on BiPAP upon arrival to the emergency department. Patient reports a similar occurrence of difficulty breathing approximately 6 months ago. He endorsed orthopnea and uses 4-5 pillows night and dyspnea while climbing stairs for the past 1-1/2 weeks. Work-up in the emergency department revealed proBNP 428, elevated glucose 234 and a chest x-ray revealed mild pulmonary edema. In the emergency department he received IV Lasix and was placed on BiPAP upon arrival and he was weaned to nasal cannula down to room air. Cardiology was consulted. Was admitted with acute respiratory failure and acute exacerbation of heart failure. During his stay he received IV Lasix and is euvolemic at this time. He was also started on a antihypertensive regimen. He will need to follow-up with his primary care physician within 1 to 2 weeks of discharge for continued care for his diabetes, new onset CHF and hypertension. Importance of medication compliance stressed to the patient. He will need to follow-up with Dr. Lili Conrad on 12/10/2019 @ 1:45PM in the [place] office. Assessment and Plan - Patient Problems (1) New onset of systolic CHF Current Visit: Yes Status: Acute Plan to address problem: Follow-up outpatient with cardiology Dr. Lili Conrad on 12/10/2019 @ 1:45PM in the [place] office. 11/23 proBNP 428 11/23 echocardiogram shows EF 25-30%, mild LVH, impaired relaxation 11/23 Lexiscan MPI shows no ischemia but a EF of 31% Continue aspirin, Lipitor, losartan, metoprolol, Lasix (2) Acute respiratory failure with hypoxia Current Visit: Yes Status: Resolved Plan to address problem: Per EMS his room air SPO2 was 76% S/p BiPAP in the ED 11/23 ABG on 40% FiO2: 7.3/44/99.5/23 Weaned to NC to RA at [place] (3) HTN (hypertension) Current Visit: Yes Status: Chronic Plan to address problem: Blood pressure monitoring per primary care physician Continue losartan, metoprolol, Lasix (4) Diabetes mellitus Current Visit: Yes Status: Chronic Plan to address problem: Patient states that he was diagnosed with DM on his last visit with his PCP however he has not been taking his insulin for about a month Patient has been hyperglycemic during his stay Resume home insulin Follow-up with the primary care physician Continue consistent carbohydrate cardiac diet Blood glucose monitoring per primary care physician (5) Tobacco abuse Current Visit: Yes Status: Acute Plan to address problem: Smoking cessation education Consider transdermal NicoDerm patch (6) Hyponatremia Current Visit: Yes Status: Resolved Plan to address problem: 11/25 sodium 135, discharge sodium 140 (7) Hypochloremia Current Visit: Yes Status: Resolved Plan to address problem: Admit chloride 96, discharge chloride 100.1 Disposition: DC-30 STILL A PATIENT Time spent for discharge: 40 Core Measure Documentation - Palliative Care Palliative Care/ Comfort Measures: Not Applicable - Core Measures Any of the following diagnoses?: heart failure - Heart Failure Discharge Requirements MORENA/ARB for LVSD if EF <40%: Yes Beta yajaira at discharge: Yes Exam - Constitutional Vitals: Temp Pulse Resp BP Pulse Ox 98.1 F 75 18 142/84 95 11/26/19 11:19 11/26/19 11:19 11/26/19 11:19 11/26/19 11:19 11/26/19 11:19 Plan Activity: advance as tolerated Diet: low fat, low cholesterol, low salt, diabetic Special Instructions: record daily weights, record daily BP diary, record blood sugar diary, smoking cessation Additional Instructions: Present to nearest emergency department or contact primary care physician if experience worsening symptoms. Follow-up with Dr. Cornad in his [place] office. Your appointment date and time has been provided. It is strongly encouraged that you comply with the medical treatment. Follow-up with your primary care physician within 1 to 2 weeks of discharge for continued care. Follow up with: PRIMARY CARE, [Primary Care Provider] - 3-5 Days MALOU CONRAD MD [Staff Physician] - 7 Days Prescriptions: AtorvaSTATin [Lipitor] 40 mg PO QHS #30 tablet Aspirin [Aspirin BABY CHEW TAB] 81 mg PO QDAY #30 tab.chew Losartan [Cozaar] 25 mg PO QDAY #30 tablet Gabapentin 100 mg PO TID #90 Furosemide [Lasix TAB] 40 mg PO QDAY #30 tablet Metoprolol [Lopressor TAB] 50 mg PO BID #60 tablet <NAJMA AMOS - Last Filed: 11/26/19 17:35> Providers - Providers Date of Admission: 11/25/19 12:00 Date of discharge: 11/26/19 Attending physician: NAJMA MAOS 11/24/19 08:45 Consult to Cardiac Rehabilitation [CONS] Routine Reason For Exam: new onset CHF Consult to Cardiology [CONS] Routine Consulting Provider: ROMÁN MOORE Reason For Exam: new onset CHF Primary care physician: LOGGING ENGINEER Exam - Constitutional Vitals: Temp Pulse Resp BP Pulse Ox 98.1 F 75 18 142/84 95 11/26/19 11:19 11/26/19 11:19 11/26/19 11:19 11/26/19 11:19 11/26/19 11:19
== END 2019-11-26 17:16 | disposition home or self-care (01) | DRG 291 ==
LOC: ED 05:18 → 4A 07:29 → OBSVTOIN 11-25 12:00
PROVIDERS: ADMIT Internal Medicine; ATTEND Internal Medicine
PROC: 5A09357 Assistance with Respiratory Ventilation, Less than 24 Consecutive Hours, Continuous Positive Airway Pressure (ICD-10-PCS; principal; 2019-11-24)
PROC: 4A033R1 Measurement of Arterial Saturation, Peripheral, Percutaneous Approach (ICD-10-PCS; 2019-11-24)
DX: I11.0 Hypertensive heart disease with heart failure (principal); I50.21 Acute systolic (congestive) heart failure; J96.01 Acute respiratory failure with hypoxia; E87.1 Hypo-osmolality and hyponatremia; E66.9 Obesity, unspecified; Z68.36 Body mass index [BMI] 36.0-36.9, adult; F17.210 Nicotine dependence, cigarettes, uncomplicated; M19.90 Unspecified osteoarthritis, unspecified site; Z83.3 Family history of diabetes mellitus; I49.3 Ventricular premature depolarization; E78.5 Hyperlipidemia, unspecified; E11.65 Type 2 diabetes mellitus with hyperglycemia; E87.8 Other disorders of electrolyte and fluid balance, not elsewhere classified; I42.9 Cardiomyopathy, unspecified
CPT/HCPCS: 36415; 71045; 78452; 80048; 80053; 80061; 82803; 82962; 83735; 83880; 84484; 85025; 85610; 87641; 93005; 93017; 93306; 96374; G0378; A9270-GY; A9502; J1940; J2785

== ENCOUNTER 2019-11-30 13:29 | Emergency (ER) | payer OTHER ==
--- NOTE | 2019-11-30 14:54 | Emergency Department Report ---
ED General Adult HPI - General Chief complaint: Dyspnea/Respdistress Stated complaint: SHORTNESS OF BREATH Time Seen by Provider: 11/30/19 14:50 Source: patient, EMS Mode of arrival: Stretcher Limitations: No Limitations - History of Present Illness Initial comments: The patient presents to the emergency department with a chief complaint of increased shortness of breath since being discharged from the hospital last week. The patient states he has congestive heart failure and the water pill he is taking is not working. Patient complains of difficulty breathing when laying flat. Patient denies any chest pain, abdominal pain, headache. -: Sudden Severity scale (0 -10): 0 Consistency: constant Improves with: none Worsens with: none Associated Symptoms: denies other symptoms Treatments Prior to Arrival: none - Related Data Previous Rx's Medication Instructions Recorded Last Taken Type Acetaminophen [Acetaminophen TAB] 650 mg PO Q4H PRN tablet 11/26/19 Unknown Rx Aspirin [Aspirin BABY CHEW TAB] 81 mg PO QDAY #30 tab.chew 11/26/19 Unknown Rx AtorvaSTATin [Lipitor] 40 mg PO QHS #30 tablet 11/26/19 Unknown Rx Furosemide [Lasix TAB] 40 mg PO QDAY #30 tablet 11/26/19 Unknown Rx Gabapentin 100 mg PO TID #90 11/26/19 Unknown Rx Losartan [Cozaar] 25 mg PO QDAY #30 tablet 11/26/19 Unknown Rx Metoprolol [Lopressor TAB] 50 mg PO BID #60 tablet 11/26/19 Unknown Rx Allergies Allergy/AdvReac Type Severity Reaction Status Date / Time No Known Allergies Allergy Unverified 09/01/19 08:29 ED Review of Systems ROS: Stated complaint: SHORTNESS OF BREATH Other details as noted in HPI Comment: All other systems reviewed and negative Constitutional: denies: chills, fever Eyes: denies: eye pain, eye discharge, vision change ENT: denies: ear pain, throat pain Respiratory: shortness of breath. denies: cough, wheezing Cardiovascular: denies: chest pain, palpitations Endocrine: no symptoms reported Gastrointestinal: denies: abdominal pain, nausea, diarrhea Genitourinary: denies: urgency, dysuria Musculoskeletal: denies: back pain, joint swelling, arthralgia Skin: denies: rash, lesions Neurological: denies: headache, weakness, paresthesias Psychiatric: denies: anxiety, depression Hematological/Lymphatic: denies: easy bleeding, easy bruising ED Past Medical Hx - Past Medical History Previous Medical History?: Yes Hx Hypertension: Yes Hx Congestive Heart Failure: Yes (2019) Hx Diabetes: Yes Additional medical history: Neuropathy, hyperlipidema - Surgical History Past Surgical History?: No - Social History Smoking Status: Current Every Day Smoker Substance Use Type: Alcohol - Medications Home Medications: Home Medications Medication Instructions Recorded Confirmed Last Taken Type Acetaminophen [Acetaminophen TAB] 650 mg PO Q4H PRN tablet 11/26/19 Unknown Rx Aspirin [Aspirin BABY CHEW TAB] 81 mg PO QDAY #30 tab.chew 11/26/19 Unknown Rx AtorvaSTATin [Lipitor] 40 mg PO QHS #30 tablet 11/26/19 Unknown Rx Furosemide [Lasix TAB] 40 mg PO QDAY #30 tablet 11/26/19 Unknown Rx Gabapentin 100 mg PO TID #90 11/26/19 Unknown Rx Losartan [Cozaar] 25 mg PO QDAY #30 tablet 11/26/19 Unknown Rx Metoprolol [Lopressor TAB] 50 mg PO BID #60 tablet 11/26/19 Unknown Rx ED Physical Exam - General Limitations: No Limitations General appearance: alert, in no apparent distress - Head Head exam: Present: atraumatic, normocephalic - Eye Eye exam: Present: normal appearance, PERRL, EOMI - ENT ENT exam: Present: mucous membranes moist - Neck Neck exam: Present: normal inspection - Respiratory Respiratory exam: Present: normal lung sounds bilaterally. Absent: respiratory distress - Cardiovascular Cardiovascular Exam: Present: regular rate, normal rhythm. Absent: systolic murmur, diastolic murmur, rubs, gallop - GI/Abdominal GI/Abdominal exam: Present: soft, normal bowel sounds. Absent: distended, tenderness - Rectal Rectal exam: Present: deferred - Extremities Exam Extremities exam: Present: normal inspection - Back Exam Back exam: Present: normal inspection - Neurological Exam Neurological exam: Present: alert, oriented X3, CN II-XII intact. Absent: motor sensory deficit - Psychiatric Psychiatric exam: Present: normal affect, normal mood - Skin Skin exam: Present: warm, dry, intact, normal color. Absent: rash ED Course Vital Signs 11/30/19 11/30/19 11/30/19 13:58 14:00 14:30 Temperature Pulse Rate 79 Respiratory 16 Rate Blood Pressure 130/83 140/83 O2 Sat by Pulse 96 97 96 Oximetry 11/30/19 14:59 Temperature 98.2 F Pulse Rate Respiratory Rate Blood Pressure O2 Sat by Pulse Oximetry ED Medical Decision Making - Lab Data Result diagrams: 11/30/19 15:01 11/30/19 15:01 Lab Results 11/30/19 11/30/19 11/30/19 Range/Units 15:01 15:01 15:28 WBC 8.2 (4.5-11.0) K/mm3 RBC 4.54 (3.65-5.03) M/mm3 Hgb 13.7 (11.8-15.2) gm/dl Hct 40.1 (35.5-45.6) % MCV 88 (84-94) fl MCH 30 (28-32) pg MCHC 34 (32-34) % RDW 13.8 (13.2-15.2) % Plt Count 240 (140-440) K/mm3 Lymph % (Auto) 28.6 (13.4-35.0) % [place] % (Auto) 7.4 H (0.0-7.3) % Eos % (Auto) 0.9 (0.0-4.3) % Baso % (Auto) 0.8 (0.0-1.8) % Lymph # (Auto) 2.3 (1.2-5.4) K/mm3 Parmer # (Auto) 0.6 (0.0-0.8) K/mm3 Eos # (Auto) 0.1 (0.0-0.4) K/mm3 Baso # (Auto) 0.1 (0.0-0.1) K/mm3 Seg Neutrophils % 62.3 (40.0-70.0) % Seg Neutrophils # 5.1 (1.8-7.7) K/mm3 Sodium 138 (137-145) mmol/L Potassium 4.2 (3.6-5.0) mmol/L Chloride 100.2 (98-107) mmol/L Carbon Dioxide 24 D (22-30) mmol/L Anion Gap 18 mmol/L BUN 15 (9-20) mg/dL Creatinine 0.9 (0.8-1.3) mg/dL Estimated GFR > 60 ml/min BUN/Creatinine Ratio 17 % Glucose 204 H (75-100) mg/dL Calcium 9.5 (8.4-10.2) mg/dL Total Bilirubin 0.40 (0.1-1.2) mg/dL AST 28 (5-40) units/L ALT 42 (7-56) units/L Alkaline Phosphatase 121 (35-129) units/L NT-Pro-B Natriuret Pep 714.1 (0-900) pg/mL Total Protein 7.1 (6.3-8.2) g/dL Albumin 4.2 (3.9-5) g/dL Albumin/Globulin Ratio 1.4 % Urine Color Straw (Yellow) Urine Turbidity Clear (Clear) Urine pH 6.0 (5.0-7.0) Ur Specific [place] 1.013 (1.003-1.030) Urine Protein <15 mg/dl (Negative) mg/dL Urine Glucose (UA) >=500 (Negative) mg/dL Urine Ketones Neg (Negative) mg/dL Urine Blood Neg (Negative) Urine Nitrite Neg (Negative) Urine Bilirubin Neg (Negative) Urine Urobilinogen < 2.0 (<2.0) mg/dL Ur Leukocyte Esterase Neg (Negative) Urine WBC (Auto) 1.0 (0.0-6.0) /HPF Urine RBC (Auto) 4.0 (0.0-6.0) /HPF Hyaline Casts 1 /LPF Urine Mucus Few /HPF - EKG Data -: EKG Interpreted by Hi EKG shows normal: sinus rhythm Rate: normal - Radiology Data Radiology results: report reviewed - Medical Decision Making Discussed results with patient Patient states he has anxiety and thinks at times when he gets worried about breathing his anxiety kicks in. He states he has an appointment with his primary care physician on the of this month for follow-up. Critical care attestation.: If time is entered above; I have spent that time in minutes in the direct care of this critically ill patient, excluding procedure time. ED Disposition Clinical Impression: Dyspnea Disposition: DC- TO HOME OR SELFCARE Is pt being admited?: No Does the pt Need Aspirin: No Condition: Stable Instructions: Dyspnea (ED) Additional Instructions: return if worse Referrals: PRIMARY CARE, [Primary Care Provider] - 3-5 Days MICHAEL MEI MD [Staff Physician] - 3-5 Days Time of Disposition: 17:49
[2019-11-30 14:59] VITALS: BP 140/83
[2019-11-30 15:35] LABS: Basophils # (Auto) 0.1 K/mm3 (0.0-0.1); Basophils % (Auto) 0.8 % (0.0-1.8); Eosinophils # (Auto) 0.1 K/mm3 (0.0-0.4); Eosinophils % (Auto) 0.9 % (0.0-4.3); Hematocrit 40.1 % (35.5-45.6); Hemoglobin 13.7 gm/dl (11.8-15.2); Lymphocytes # (Auto) 2.3 K/mm3 (1.2-5.4); Lymphocytes % (Auto) 28.6 % (13.4-35.0); Mean Corpuscular HGB Conc 34 % (32-34); Mean Corpuscular Volume 88 fl (84-94); Monocytes # (Auto) 0.6 K/mm3 (0.0-0.8); Monocytes % (Auto) 7.4 % (0.0-7.3); Platelet Count 240 K/mm3 (140-440); Red Blood Count 4.54 M/mm3 (3.65-5.03); Red Cell Distribution Width 13.8 % (13.2-15.2)
[2019-11-30 15:37] LABS: Bilirubin,Urine NEG (Negative); Blood,Urine NEG (Negative); Color,Urine Straw (Yellow); Hyaline Casts,Urine 1 /LPF; Mucus,Urine FEW /HPF; Protein,Urine <15 mg/dL mg/dL (Negative); Urobilinogen,Urine < 2.0 mg/dL (<2.0)
[2019-11-30 15:54] LABS: Alanine Aminotransferase 42 units/L (7-56); Albumin 4.2 g/dL (3.9-5); BUN/Creatinine Ratio 17; Blood Urea Nitrogen 15 mg/dL (9-20); Calcium 9.5 mg/dL (8.4-10.2); Hemolysis Index 8
--- NOTE | 2019-11-30 16:36 | XRay Report ---
CHEST 1 VIEW INDICATION: sob. COMPARISON: 11/24/2019 FINDINGS: Support devices: None. Heart: Within normal limits. Lungs/Pleura: No acute air space or interstitial disease. Additional findings: None. IMPRESSION: No acute findings. Signer Name: Moe Esquivel Jr, MD Signed: 11/30/2019 4:31 PM Workstation Name: [id number]
== END 2019-11-30 17:50 | disposition home or self-care (01) ==
LOC: ED 13:29
DX: R06.00 Dyspnea, unspecified (principal); I11.0 Hypertensive heart disease with heart failure; I50.9 Heart failure, unspecified; E78.5 Hyperlipidemia, unspecified; E11.9 Type 2 diabetes mellitus without complications; F17.200 Nicotine dependence, unspecified, uncomplicated; Z79.899 Other long term (current) drug therapy
CPT/HCPCS: 36415; 71045; 80053; 81001; 83880; 85025

== ENCOUNTER 2020-08-05 09:02 | Emergency (ER) | payer SELFPAY ==
--- NOTE | 2020-08-05 09:46 | Emergency Department Report ---
HPI - General Chief Complaint: Dyspnea/Respdistress Time Seen by Provider: 08/05/20 09:33 - HPI HPI: This is a 60-year-old -[place] male presents to the emergency department with complaint of shortness of breath and cough that started this morning. The patient says that he has been having some issues over the past 2 to 3 weeks in which climbing stairs or exertion makes him feel short of breath and he has to stop and rest. This morning the shortness of breath began even while at rest, but still worsens with exertion. He did not take anything for his symptoms prior to presentation. He has a past medical history of CHF, diabetes, hyperten cherie. 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 He is a tobacco smoker but denies any illicit drug use. He denies any fever, lower extremity swelling, nausea, vomiting, back pain, or any significant chest discomfort. No recent travel or sick contacts at home. ED Past Medical Hx - Past Medical History Previous Medical History?: Yes Hx Hypertension: Yes Hx Congestive Heart Failure: Yes (2019) Hx Diabetes: Yes Additional medical history: Neuropathy, hyperlipidema - Surgical History Past Surgical History?: No - Social History Smoking Status: Current Every Day Smoker Substance Use Type: Alcohol - Medications Home Medications: Home Medications Medication Instructions Recorded Confirmed Last Taken Type Acetaminophen [Acetaminophen TAB] 650 mg PO Q4H PRN tablet 11/26/19 08/05/20 Unknown Rx Aspirin [Aspirin BABY CHEW TAB] 81 mg PO QDAY #30 tab.chew 11/26/19 08/05/20 Unknown Rx AtorvaSTATin [Lipitor] 40 mg PO QHS #30 tablet 11/26/19 08/05/20 Unknown Rx Furosemide [Lasix TAB] 40 mg PO QDAY #30 tablet 11/26/19 08/05/20 Unknown Rx Metoprolol [Lopressor TAB] 50 mg PO BID #60 tablet 11/26/19 08/05/20 Unknown Rx Albuterol Mdi (or & Nicu Only) 2 puff IH QID PRN #8.5 gram 08/05/20 Unknown Rx [ProAir HFA Inhaler] Gabapentin [Neurontin] 100 mg PO TID 08/05/20 08/05/20 Unknown History Losartan [Cozaar] 50 mg PO QDAY 08/05/20 08/05/20 Unknown History ED Review of Systems ROS: Stated complaint: SOB Other details as noted in HPI Comment: All other systems reviewed and negative Constitutional: denies: chills, fever Eyes: denies: eye pain, vision change Respiratory: cough, shortness of breath, SOB with exertion, SOB at rest Cardiovascular: denies: chest pain, edema Gastrointestinal: denies: abdominal pain, vomiting Genitourinary: denies: dysuria, discharge Musculoskeletal: denies: back pain, arthralgia Skin: denies: rash, lesions Neurological: denies: headache, weakness Physical Exam - Physical Exam Physical Exam: GENERAL: The patient is well-developed well-nourished. HENT: Normocephalic. Atraumatic. Patient has moist mucous membranes. EYES: Extraocular motions are intact. NECK: Supple. Trachea is midline. CHEST/LUNGS: Clear to auscultation. No tachypnea or accessory muscle use. There is no respiratory distress noted. HEART/CARDIOVASCULAR: Regular. There is mild tachycardia. There is no murmur. ABDOMEN: Abdomen is soft, nontender. Patient has normal bowel sounds. SKIN: Skin is warm and dry. NEURO: The patient is awake, alert, and oriented. The patient is cooperative. The patient has no focal neurologic deficits. Normal speech. MUSCULOSKELETAL: There is no tenderness or deformity. There is no limitation range of motion. ED Medical Decision Making - Lab Data Result diagrams: 08/05/20 09:43 08/05/20 09:43 Lab Results 08/05/20 08/05/20 08/05/20 Range/Units 09:43 09:43 09:43 WBC 9.0 (4.5-11.0) K/mm3 RBC 4.76 (3.65-5.03) M/mm3 Hgb 14.4 (11.8-15.2) gm/dl Hct 42.0 (35.5-45.6) % MCV 88 (84-94) fl MCH 30 (28-32) pg MCHC 34 (32-34) % RDW 14.3 (13.2-15.2) % Plt Count 239 (140-440) K/mm3 Lymph % (Auto) 21.4 (13.4-35.0) % [place] % (Auto) 5.4 (0.0-7.3) % Eos % (Auto) 2.2 (0.0-4.3) % Baso % (Auto) 0.6 (0.0-1.8) % Lymph # (Auto) 1.9 (1.2-5.4) K/mm3 [place] # (Auto) 0.5 (0.0-0.8) K/mm3 Eos # (Auto) 0.2 (0.0-0.4) K/mm3 Baso # (Auto) 0.1 (0.0-0.1) K/mm3 Seg Neutrophils % 70.4 H (40.0-70.0) % Seg Neutrophils # 6.3 (1.8-7.7) K/mm3 D-Dimer 147.25 (0-234) ng/mlDDU Sodium 135 L (137-145) mmol/L Potassium 4.2 (3.6-5.0) mmol/L Chloride 98.0 (98-107) mmol/L Carbon Dioxide 26 (22-30) mmol/L Anion Gap 15 mmol/L BUN 15 (9-20) mg/dL Creatinine 1.0 (0.8-1.3) mg/dL Estimated GFR > 60 ml/min BUN/Creatinine Ratio 15 % Glucose 305 H (75-100) mg/dL Calcium 8.9 (8.4-10.2) mg/dL Total Bilirubin 0.40 (0.1-1.2) mg/dL AST 18 (5-40) units/L ALT 21 (7-56) units/L Alkaline Phosphatase 154 H (35-129) units/L Troponin T < 0.010 (0.00-0.029) ng/mL NT-Pro-B Natriuret Pep 273.6 (0-900) pg/mL Total Protein 6.8 (6.3-8.2) g/dL Albumin 3.7 L (3.9-5) g/dL Albumin/Globulin Ratio 1.2 % 08/05/20 Range/Units 11:51 WBC (4.5-11.0) K/mm3 RBC (3.65-5.03) M/mm3 Hgb (11.8-15.2) gm/dl Hct (35.5-45.6) % MCV (84-94) fl MCH (28-32) pg MCHC (32-34) % RDW (13.2-15.2) % Plt Count (140-440) K/mm3 Lymph % (Auto) (13.4-35.0) % [place] % (Auto) (0.0-7.3) % Eos % (Auto) (0.0-4.3) % Baso % (Auto) (0.0-1.8) % Lymph # (Auto) (1.2-5.4) K/mm3 [place] # (Auto) (0.0-0.8) K/mm3 Eos # (Auto) (0.0-0.4) K/mm3 Baso # (Auto) (0.0-0.1) K/mm3 Seg Neutrophils % (40.0-70.0) % Seg Neutrophils # (1.8-7.7) K/mm3 D-Dimer (0-234) ng/mlDDU Sodium (137-145) mmol/L Potassium (3.6-5.0) mmol/L Chloride (98-107) mmol/L Carbon Dioxide (22-30) mmol/L Anion Gap mmol/L BUN (9-20) mg/dL Creatinine (0.8-1.3) mg/dL Estimated GFR ml/min BUN/Creatinine Ratio % Glucose (75-100) mg/dL Calcium (8.4-10.2) mg/dL Total Bilirubin (0.1-1.2) mg/dL AST (5-40) units/L ALT (7-56) units/L Alkaline Phosphatase (35-129) units/L Troponin T 0.013 (0.00-0.029) ng/mL NT-Pro-B Natriuret Pep (0-900) pg/mL Total Protein (6.3-8.2) g/dL Albumin (3.9-5) g/dL Albumin/Globulin Ratio % - EKG Data -: EKG Interpreted by Me EKG shows normal: sinus rhythm, axis, intervals, QRS complexes, ST-T waves (There are a few isolated T wave inversions) Rate: tachycardia (103 bpm) - EKG Data When compared to previous EKG there are: no significant change Interpretation: unchanged when compared t (11/30/19) - Radiology Data Radiology results: image reviewed interpreted by me: Chest x-ray does not show any acute process. There are no pleural effusions, obvious pneumonia and there is no pneumothorax. No widened mediastinum. - Medical Decision Making This patient presents to the emergency department with a complaint of some shortness of breath and cough that started this morning. On examination the patient's heart and lung sounds are normal to auscultation. He does not appear in any respiratory or acute distress. EKG did not have any morphology consistent with ST elevation myocardial infarction. Chest x-ray does not show any pneumonia, pleural effusions, pneumothorax, focal consolidation, widened mediastinum, or any other acute process. The patient's labs have been unremarkable including CBC, metabolic panel, negative troponins x2, negative D-dimer, low proBNP. The patient did have some hyperglycemia with blood sugar of about 300, but does not appear in diabetic ke toacidosis. Patient was given a dose of prednisone, and a DuoNeb breathing treatment. Upon reevaluation he is feeling greatly improved. The patient was able to ambulate in the emergency department without any oxygen desaturation or significant increased work of breathing. For all these reasons he appears safe for discharge home at this time. He has been given outpatient referrals for primary care and pulmonology. We discussed smoking cessation. He will return to the emergency department with any worsening of his symptoms or with any acute distress. Critical Care Time: No Critical care attestation.: If time is entered above; I have spent that time in minutes in the direct care of this critically ill patient, excluding procedure time. ED Disposition Clinical Impression: Tobacco use disorder, Hyperglycemia Dyspnea Qualifiers: Dyspnea type: shortness of breath Qualified Code(s): R06.02 - Shortness of breath; R06.00 - Dyspnea, unspecified; R06.01 - Orthopnea Hypertension Qualifiers: Hypertension type: essential hypertension Qualified Code(s): I10 - Essential (primary) hypertension Disposition: DC-01 TO HOME OR SELFCARE Is pt being admited?: No Condition: Stable Instructions: Hyperglycemia, Shortness of Breath, Adult, Steps to Quit Smoking, Hypertension, Adult, Hypertension (ED) Additional Instructions: Please follow-up with a primary care physician in the next few days. I have given you a referral for a local primary care physician, Dr. Wharton, and a primary care clinic, [facility]. I have also given you a referral for a local chief guard, Dr. Patricio. Take all of your medications as prescribed. Try to stay away from foods that are high in salt and caffeinated products. Ke ep a blood pressure log. Try to stay away from foods that are high in sugar, carbohydrates and starches. Keep a blood sugar log. Please try to quit smoking. Return to the emergency department with any worsening of your symptoms, new or concerning symptoms not addressed during this current emergency department visit, or with any acute distress. Prescriptions: Albuterol Mdi (or & Nicu Only) [ProAir HFA Inhaler] 2 puff IH QID PRN #8.5 gram PRN Reason: Shortness Of Breath Referrals: PRIMARY CAREMD [Primary Care Provider] - 3-5 Days JOSE RAMON WHARTON MD [Staff Physician] - 3-5 Days PATRIC LARSEN MD [Staff Physician] - 3-5 Days [facility] [Provider Group] - 3-5 Days Time of Disposition: 12:49
[2020-08-05 10:02] LABS: Basophils # (Auto) 0.1 K/mm3 (0.0-0.1); Basophils % (Auto) 0.6 % (0.0-1.8); Eosinophils # (Auto) 0.2 K/mm3 (0.0-0.4); Eosinophils % (Auto) 2.2 % (0.0-4.3); Hemoglobin 14.4 gm/dl (11.8-15.2); Lymphocytes # (Auto) 1.9 K/mm3 (1.2-5.4); Lymphocytes % (Auto) 21.4 % (13.4-35.0); Mean Corpuscular HGB Conc 34 % (32-34); Mean Corpuscular Volume 88 fl (84-94); Monocytes # (Auto) 0.5 K/mm3 (0.0-0.8); Monocytes % (Auto) 5.4 % (0.0-7.3); Platelet Count 239 K/mm3 (140-440); Red Blood Count 4.76 M/mm3 (3.65-5.03); Red Cell Distribution Width 14.3 % (13.2-15.2)
--- NOTE | 2020-08-05 10:08 | XRay Report ---
CHEST 1 VIEW 08/05/2020 9:35 AM INDICATION / CLINICAL INFORMATION: SOB. COMPARISON: Chest x-ray 11/30/2019 FINDINGS: SUPPORT DEVICES: None. HEART / MEDIASTINUM: No significant abnormality. LUNGS / PLEURA: No significant pulmonary or pleural abnormality. No pneumothorax. ADDITIONAL FINDINGS: No significant additional findings. IMPRESSION: 1. No acute findings. Signer Name: Ahmet Remy MD Signed: 08/05/2020 10:04 AM Workstation Name: [id number]
[2020-08-05 10:24] LABS: Alanine Aminotransferase 21 units/L (7-56); Albumin 3.7 g/dL (3.9-5); BUN/Creatinine Ratio 15; Blood Urea Nitrogen 15 mg/dL (9-20); Calcium 8.9 mg/dL (8.4-10.2); Hemolysis Index 4
[2020-08-05] MEDS ORDERED: IPRATROPIUM/ALBUTEROL SULFATE 3 ML AMPUL.NEB IH ONE (10:30)
[2020-08-05] MEDS ORDERED: predniSONE 20 MG TAB PO ONE (12:03)
[2020-08-05 12:59] VITALS: BP 144/90
--- NOTE | 2020-08-06 13:15 | Electrocardiograph Report ---
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
== END 2020-08-05 12:59 | disposition home or self-care (01) ==
LOC: ED 09:02
DX: R06.00 Dyspnea, unspecified (principal); E11.65 Type 2 diabetes mellitus with hyperglycemia; I11.0 Hypertensive heart disease with heart failure; I50.9 Heart failure, unspecified; F17.200 Nicotine dependence, unspecified, uncomplicated; E78.5 Hyperlipidemia, unspecified; Z79.899 Other long term (current) drug therapy
CPT/HCPCS: 36415; 71045; 80053; 83880; 84484; 85025; 85379; 93005; 94640; 99284; J7512; 94644